=== PATIENT | female | born 1975 | race Caucasian/White ===

== ENCOUNTER 2022-11-12 19:51 | Emergency (ER) | payer MEDICAID ==
[~2022-11-12] VITALS: Ht 160 cm; Wt 72.0 kg
[2022-11-12] MEDS ORDERED: FAMOTIDINE 20MG/2ML VIAL IV ONE (20:45)
[2022-11-12] MEDS ORDERED: DIPHENHYDRAMINE 50MG/ML VIAL IV ONE (20:45)
[2022-11-12] MEDS ORDERED: EPINEPHRINE 1:1000 1 MG/ML AMP IM ONE (20:45)
[2022-11-12] MEDS ORDERED: METHYLPREDNISOLONE SOD SUCC 125 MG/2 ML VIAL IV ONE (20:45)
[2022-11-12] MEDS ORDERED: EPINEPHRINE 1:1000 1 MG/ML AMP IM NR (20:45)
[2022-11-12] MEDS ORDERED: ALBUTEROL (0.083%) 2.5MG/3ML NEB HHN SCH (21:00)
[2022-11-13] MEDS ORDERED: EPIN0.3P3 IM (00:26)
[2022-11-13 01:00] VITALS: BP 111/71
== END 2022-11-13 02:13 | disposition home or self-care (01) ==
LOC: ER 19:51
DX: R21 Rash and other nonspecific skin eruption (principal); R51.9 Headache, unspecified; R05.9 Cough, unspecified; J45.909 Unspecified asthma, uncomplicated; Z98.890 Other specified postprocedural states; Z88.0 Allergy status to penicillin
CPT/HCPCS: 94640; 96372; 96374; 96375; 99284; J1200; J2930; J3490; Z7610

== ENCOUNTER 2023-02-22 18:20 | Emergency (ER) | payer MEDICAID ==
[~2023-02-22] VITALS: Ht 157.5 cm; Wt 83.0 kg
[~2023-02-22 18:20] MED LIST: EPIN0.3P3 IM
[2023-02-22 22:26] VITALS: BP 124/66
[2023-02-22 22:40] LABS: EOSINOPHILS % 0.1 % (0.0-5.0); HEMATOCRIT. 40.1 % (36.0-48.0); HEMOGLOBIN. 13.5 g/dL (12.0-16.0); LYMPHOCYTES % 10.9 % (20.0-50.0); MEAN CORPUSCULAR HEMOGLOBIN 31.3 pg (28.0-32.0); MEAN CORPUSCULAR VOLUME 92.9 fL (81.0-99.0); MEAN PLATELET VOLUME 7.9 fl (7.4-10.4); MONOCYTES % 5.5 % (2.0-8.0); NEUTROPHILS % 83.5 % (40.0-76.0); PLATELET 271 x1000/uL (130-400); RED BLOOD CELL COUNT 4.32 mill/uL (4.2-5.4); RED CELL DISTRIBUTION WIDTH 13.7 % (11.6-14.6)
[2023-02-22 22:47] LABS: CHLORIDE 106 mEq/L (98-107)
[2023-02-22 22:55] LABS: ETHANOL BLOOD < 10 mg/dL
[2023-02-22 23:30] LABS: CLARITY URINE CLEAR (CLEAR); COLOR URINE YELLOW (YELLOW); KETONES URINE NEGATIVE (NEGATIVE); LEUKOCYTE ESTERASE URINE TRACE (NEGATIVE); NITRITE URINE POSITIVE (NEGATIVE); OCCULT BLOOD URINE 2+ (NEGATIVE); PH URINE 6.5 (4.5-8.0); PROTEIN URINE NEGATIVE (NEGATIVE); SPECIFIC GRAVITY URINE 1.024 (1.005-1.030); UROBILINOGEN URINE 0.2 E.U./dL (0.2-1.0)
[2023-02-22 23:51] LABS: *AMPHETAMINES SCREEN URINE NEGATIVE (NEGATIVE); *BARBITURATES SCREEN URINE NEGATIVE (NEGATIVE); *BENZODIAZEPINES SCREEN URINE NEGATIVE (NEGATIVE); *COCAINE SCREEN URINE NEGATIVE (NEGATIVE); METHADONE URINE SCREEN NEGATIVE (NEGATIVE); OPIATES URINE SCREEN NEGATIVE (NEGATIVE); PHENCYCLIDINE URINE SCREEN NEGATIVE (NEGATIVE)
[2023-02-22 23:58] LABS: CANNABINOID URINE SCREEN PRESUMTIVE POSITIVE (NEGATIVE)
== END 2023-02-23 03:16 | disposition home or self-care (01) ==
LOC: ER 18:20
DX: T40.711A Poisoning by cannabis, accidental (unintentional), initial encounter (principal); R42 Dizziness and giddiness; J45.909 Unspecified asthma, uncomplicated; I10 Essential (primary) hypertension; Z88.0 Allergy status to penicillin; Z88.1 Allergy status to other antibiotic agents; Z88.6 Allergy status to analgesic agent; Y92.89 Other specified places as the place of occurrence of the external cause
CPT/HCPCS: 36415; 80053; 80305; 80320; 81003; 82140; 82962; 85025; 99283; Z7610; G0480